=== PATIENT | male | born 1965 | race Caucasian/White ===

== ENCOUNTER → 2024-03-06 08:04 | Outpatient (REF) | payer OTHER, SELFPAY | LOC: RAD 08:04 | PROVIDERS: ATTENDING PHYSICIAN Surgery; FAMILY PHYSICIAN Family Medicine | DX: K40.90 Unilateral inguinal hernia, without obstruction or gangrene, not specified as recurrent (principal) | CPT/HCPCS: 74177; Q9967 ==

== ENCOUNTER 2024-03-28 06:48 | Day surgery (SDC) | payer OTHER, SELFPAY ==
[2024-03-28] VITALS (7 sets, daily range): BP systolic 113–144; BP diastolic 75–87; BMI 35.1
[2024-03-28] MEDS: TYLENOL 1000 MG PO (10:00)
[2024-03-28] MEDS: NORMOSOL-R 1000 IV (10:01)
== END 2024-03-28 14:45 | disposition home or self-care (01) ==
LOC: SDS 06:48
PROVIDERS: ATTENDING PHYSICIAN Surgery
DX: K40.90 Unilateral inguinal hernia, without obstruction or gangrene, not specified as recurrent (principal); Z98.890 Other specified postprocedural states
CPT/HCPCS: 49650; C1781

== ENCOUNTER → 2024-08-29 08:39 | Outpatient (REF) | payer OTHER, SELFPAY | LOC: RAD 08:39 | PROVIDERS: ATTENDING PHYSICIAN Surgery; FAMILY PHYSICIAN Family Medicine | DX: R19.09 Other intra-abdominal and pelvic swelling, mass and lump (principal); Z98.890 Other specified postprocedural states; Z87.19 Personal history of other diseases of the digestive system | CPT/HCPCS: 72193; Q9967 ==

== ENCOUNTER → 2024-09-05 08:15 | Outpatient (REF) | payer OTHER, SELFPAY ==
[2024-09-05 08:40] VITALS: BP 149/100; BP_SYST 80
== END ==
LOC: RADI 08:15
PROVIDERS: ATTENDING PHYSICIAN Surgery; FAMILY PHYSICIAN Family Medicine
DX: K91.872 Postprocedural seroma of a digestive system organ or structure following a digestive system procedure (principal); Y83.8 Other surgical procedures as the cause of abnormal reaction of the patient, or of later complication, without mention of misadventure at the time of the procedure
CPT/HCPCS: 10030; 87015; 87070; 87205